=== PATIENT | female | born 1960 | race African-American/Black ===

== ENCOUNTER 2021-08-10 18:21 | Emergency (ER) | payer BC ==
[~2021-08-10] VITALS: Ht 167.6 cm; Wt 63.5 kg
--- NOTE | 2021-08-10 18:29 | NUR ---
GURMEET DE LEON AT BEDSIDE FOR EVAL.
--- NOTE | 2021-08-10 18:47 | NUR ---
FRIEND OF THE COURT AT BEDSIDE.
--- NOTE | 2021-08-10 18:50 | NUR ---
PT IS WHEELED TO CT SCAN VIA [facility].
[2021-08-10] MEDS ORDERED: KETOROLAC TROMETHAMINE INJ 30 MG/ML VIAL ONE (19:55)
[2021-08-10] MEDS ORDERED: IBUP-1955 PO (19:56)
[2021-08-10] MEDS ORDERED: KETOROLAC TROMETHAMINE INJ 60 MG/2 ML VIAL IM ONE (20:00)
[2021-08-10 21:19] VITALS: BP 130/63
== END 2021-08-10 21:20 | disposition home or self-care (01) ==
LOC: ER 18:24
DX: S00.83XA Contusion of other part of head, initial encounter (principal); G89.29 Other chronic pain; V49.49XA Driver injured in collision with other motor vehicles in traffic accident, initial encounter; Y93.89 Activity, other specified; Y92.413 State road as the place of occurrence of the external cause; Y99.8 Other external cause status
CPT/HCPCS: 70450; 72125; 96372; 99284; J1885